=== PATIENT | female | born 1980 | race Two or more races ===

== ENCOUNTER 2021-04-27 19:17 | Emergency (ER) | payer MEDICAID ==
[~2021-04-27] VITALS: Ht 160 cm; Wt 68.2 kg
[2021-04-27 20:00] VITALS: BP 140/93
== END 2021-04-27 20:32 | disposition home or self-care (01) ==
LOC: ER 20:07
DX: T51.0X1A Toxic effect of ethanol, accidental (unintentional), initial encounter (principal); R10.13 Epigastric pain; J02.9 Acute pharyngitis, unspecified; Y93.89 Activity, other specified; Y92.89 Other specified places as the place of occurrence of the external cause
CPT/HCPCS: 99281